=== PATIENT | male | born 1950 | race Caucasian/White ===

== ENCOUNTER 2022-12-28 15:01 | Emergency (ER) | payer MEDICARE ==
[~2022-12-28] VITALS: Ht 172 cm; Wt 92.5 kg
[2022-12-28] MEDS ORDERED: NS IV 1000 ML 1,000 ML IV SCH (17:15)
[2022-12-28 17:18] LABS: BASOPHILS % (AUTO) 0 % (0-10); EOSINOPHILS % (AUTO) 0 % (0-10); HEMATOCRIT 27 % (40-54); HEMOGLOBIN 9.6 g/dL (13.3-17.7); MEAN CORPUSCULAR HGB CONC 36 g/dL (32-36)
--- NOTE | 2022-12-28 17:18 | ED Syncope ---
General Chief Complaint: General Problems/Pain Stated Complaint: FALL | WEAKNESS Nursing Triage Note: PT STATES FEELS OUT OF SORTS AND FELL AT [facility]. WAS DIAPHORETIC. DENIES DIZZINESS OR N/V Source of Information: Patient Exam Limitations: No Limitations History of Present Illness Date Seen by Provider: Dec 28, 2022 Time Seen by Provider: 17:02 Initial Comments 72-year-old male presents to the ED with reports of a syncopal episode at [facility] around 2 PM. States he noticed that when he walked from his car into [facility] his legs felt tight like he just walked up a bunch of steps. Reports he continued to walk around [facility], continued to have the leg tightness. Then went up to check out and handed the cashier clerk money, next thing he knew he was sitting on the floor. He states he then laid over onto his side. Denies injury. The cashier clerk told him that he did lose consciousness. Before the episode he also noticed his vision was blurry, he felt like his vision was going black. Denied any chest pain or dizziness prior to incident. States he feels pretty good now, but complains of slight aches in his body. Denies fevers, chest pain, shortness of air, abdominal pain, nausea, vomiting, diarrhea. Denies any blood in his stool. Reports he has been having occasional epistaxis. He has polycythemia vera, he is supposed to see Dr. Terry next week, he has not yet established with Dr. Terry. Allergies and Home Medications Allergies Coded Allergies: No Known Drug Allergies (Unverified , 12/28/22) Patient Home Medication List Home Medication List Reviewed: Yes Review of Systems Constitutional: see HPI Past Kxtalcv-Tkdbhg-Rqlzyr Hx Patient Social History Tobacco Use?: No Substance use?: No Alcohol Use?: No Pt feels they are or have been: No Immunizations Up To Date Influenza Vaccine Up-to-Date: No; Not Current First/Initial COVID19 Vaccinat: NONE Past Medical History Surgery/Hospitalization HX: PLATLETT PROB, HTN, GERD, INGUINAL HERNIA VASECTOMY Cancer: Yes Leukemia (polycythemia vera) Physical Exam Vital Signs Vital Signs - First Documented 12/28/22 12/28/22 15:24 16:47 Temp 37.4 Pulse 78 Resp 18 B/P (MAP) 146/69 (94) Pulse Ox 97 O2 Delivery Room Air Capillary Refill : Less Than 3 Seconds Height, Weight, BMI Height: '" Weight: lbs. oz. kg; 31.00 BMI Method: General Appearance: No Apparent Distress, WD/WN Neck: Non Tender, Supple Cardiovascular: Regular Rate, Rhythm, No Edema, No Gallop, No JVD, No Murmur Respiratory: Lungs Clear, Normal Breath Sounds, No Accessory Muscle Use, No Respiratory Distress Extremities: Normal Inspection, Normal Range of Motion Neurologic/Psychiatric: Alert, Oriented x3, No Motor/Sensory Deficits, Normal Mood/Affect, manager quality compliance II-XII Norm as Tested Cranial Nerves: Normal Hearing, Normal Speech, PERRL Coordination/Gait: Normal Gait Motor/Sensory: No Motor Deficit Skin: Normal Color, Warm/Dry Progress/Results/Core Measures Results/Orders Lab Results Laboratory Tests Test 12/28/22 17:10 12/28/22 17:38 Range/Units White Blood Count 2.1 L 4.3-11.0 10^3/uL Red Blood Count 2.22 L 4.30-5.52 10^6/uL Hemoglobin 9.6 L 13.3-17.7 g/dL Hematocrit 27 L 40-54 % Mean Corpuscular Volume 122 H 80-99 fL Mean Corpuscular Hemoglobin 43 H 25-34 pg Mean Corpuscular Hemoglobin Concent 36 32-36 g/dL Red Cell Distribution Width 10.0-14.5 % Platelet Count 24 *L 130-400 10^3/uL Mean Platelet Volume 10.6 9.0-12.2 fL Immature Granulocyte % (Auto) 1 % Neutrophils (%) (Auto) 72 42-75 % Lymphocytes (%) (Auto) 22 12-44 % Monocytes (%) (Auto) 5 0-12 % Eosinophils (%) (Auto) 0 0-10 % Basophils (%) (Auto) 0 0-10 % Neutrophils # (Auto) 1.5 L 1.8-7.8 10^3/uL Lymphocytes # (Auto) 0.5 L 1.0-4.0 10^3/uL Monocytes # (Auto) 0.1 0.0-1.0 10^3/uL Eosinophils # (Auto) 0.0 0.0-0.3 10^3/uL Basophils # (Auto) 0.0 0.0-0.1 10^3/uL Immature Granulocyte # (Auto) 0.0 0.0-0.1 10^3/uL Percent Immature Platelet Fraction 3.8 0.0-7.6 % Prothrombin Time 14.5 12.2-14.7 SEC INR Comment 1.1 0.8-1.4 Activated Partial Thromboplast Time 29 24-35 SEC Sodium Level 135 135-145 MMOL/L Potassium Level 3.8 3.6-5.0 MMOL/L Chloride Level 107 98-107 MMOL/L Carbon Dioxide Level 17 L 21-32 MMOL/L Anion Gap 11 5-14 MMOL/L Blood Urea Nitrogen 19 H 7-18 MG/DL Creatinine 1.02 0.60-1.30 MG/DL Estimat Glomerular Filtration Rate 79 BUN/Creatinine Ratio 19 Glucose Level 101 70-105 MG/DL Calcium Level 9.2 8.5-10.1 MG/DL Corrected Calcium 9.2 8.5-10.1 MG/DL Magnesium Level 2.0 1.6-2.4 MG/DL Total Bilirubin 1.2 H 0.1-1.0 MG/DL Aspartate Amino Transf (AST/SGOT) 17 5-34 U/L Alanine Aminotransferase (ALT/SGPT) 16 0-55 U/L Alkaline Phosphatase 54 40-136 U/L Troponin I < 0.028 <0.028 NG/ML Total Protein 7.9 6.4-8.2 GM/DL Albumin 4.0 3.2-4.5 GM/DL Urine Color YELLOW Urine Clarity CLEAR Urine pH 6.0 5-9 Urine Specific [place] 1.010 L 1.016-1.022 Urine Protein TRACE H NEGATIVE Urine Glucose (UA) NEGATIVE NEGATIVE Urine Ketones NEGATIVE NEGATIVE Urine Nitrite NEGATIVE NEGATIVE Urine Bilirubin NEGATIVE NEGATIVE Urine Urobilinogen 0.2 < = 1.0 MG/DL Urine Leukocyte Esterase NEGATIVE NEGATIVE Urine RBC (Auto) 3+ H NEGATIVE Urine RBC 10-25 H /HPF Urine WBC 0-2 /HPF Urine Squamous Epithelial Cells NONE /HPF Urine Crystals NONE /LPF Urine Bacteria FEW H /HPF Urine Casts PRESENT /LPF Urine Hyaline Casts RARE /LPF Urine Mucus SMALL H /LPF Urine Yeast FEW H /HPF Urine Culture Indicated YES Micro Results Microbiology 12/28/22 Urine Culture - Final, Complete NO GROWTH My Orders Orders - SANDRA,SLIM R [employer] FEEDER Cbc With Automated Diff (12/28/22 16:50) Magnesium (12/28/22 16:50) Chest 1 View, Ap/Pa Only (12/28/22 16:50) Ekg Tracing (12/28/22 16:50) Comprehensive Metabolic Panel (12/28/22 16:50) Protime With Inr (12/28/22 16:50) Partial Thromboplastin Time (12/28/22 16:50) Ed Iv/Invasive Line Start (12/28/22 16:50) Troponin I [place] (12/28/22 16:50) Ua Culture If Indicated (12/28/22 16:50) Ct Head Wo (12/28/22 16:50) Ns Iv 1000 Ml (Sodium Chloride 0.9%) (12/28/22 17:15) Urine Culture (12/28/22 17:38) Vital Signs/I&O 12/28/22 12/28/22 12/28/22 15:24 16:47 18:55 Temp 37.4 Pulse 78 91 75 Resp 18 22 22 B/P (MAP) 146/69 (94) 154/77 (102) 179/87 Pulse Ox 97 98 98 O2 Delivery Room Air Room Air Blood Pressure Mean: 94 Progress Progress Note : Progress Note Patient seen and evaluated, resting comfortably, no acute distress. Based on exam and symptoms, work-up initiated including CBC, CMP, troponin, magnesium, coags, chest x-ray, EKG, UA, CT head. IV fluids ordered. Labs reviewed. CBC shows pancytopenia. WBC is 2.1, RBC 2.22, and platelets critically low at 24. Hemoglobin low 9.6, hematocrit low 27, MCV high 122, MCHC high 43. CMP shows decreased CO2 17 and increased BUN 19. Troponin negative. Coags normal. UA shows 3+ RBCs, 0-2 WBCs, few bacteria, negative nitrites, negative leukocytes. X-ray reviewed. Negative for acute cardiopulmonary process. CT shows senescent brain with involutional changes and mild atrophy with background chronic areas of microvascular ischemic change but no acute findings identified by nonenhanced CT criteria. Moderate to severe acute on chronic right maxillary sinus disease. I called and spoke with Dr. Terry, oncologist, about patient's CBC results. He recommends patient stop taking his hydroxyurea and to follow up with him as scheduled next Wednesday where he will order repeat lab tests. He states to advise patient to return to the ED if he experiences uncontrolled bleeding or fever. Results and recommendations discussed with patient and family. Patient instructed to be very careful to not fall or injure himself because his platelet count is so low. Patient verbalized understanding of all discharge instructions and return precautions. Initial ECG Impression Date: Dec 28, 2022 Initial ECG Impression Time: 17:26 Initial ECG Rate: 79 Initial ECG Rhythm: Normal Sinus Initial ECG Intervals: Normal Initial ECG Impression: Nonspecific Changes Initial ECG Comparisson: No Previous ECG Available Comment Nondiagnostic ST changes lead aVR, no evidence of STEMI. Diagnostic Imaging Diagonstic Imaging: Xray Plain Films/CT/US/NM/MRI: chest Comments [facility] [place], [place] NAME: RADHAIRVING Felton [facility] REC#: [id number] PT STATUS: REG ER : 1950 PHYSICIAN: SLIM FLORES APRN ADMIT DATE: 12/28/22/ER Signed Date of Exam:12/28/22 CHEST 1 VIEW, AP/PA ONLY Indication: Chest pain Single AP view of chest is obtained. COMPARISON: No previous study is available for comparison at this time. FINDINGS: Heart size and pulmonary vasculature are within normal limits, and the lungs are clear, bilaterally. IMPRESSION: Unremarkable chest. Dictated by: Dictated on workstation # [id number] Dict: 12/28/22 172 Trans: 12/28/22 172 [id number] Interpreted by: GABE JONES MD Electronically signed by: GABE JONES MD 12/28/22 172 Diagonstic Imaging: CT Plain Films/CT/US/NM/MRI: head Comments [facility] [place], [place] NAME: RADHAIRVING Felton [facility] REC#: [id number] PT STATUS: REG ER : 1950 PHYSICIAN: SLIM FLORES APRN ADMIT DATE: 12/28/22/ER Signed Date of Exam:12/28/22 CT HEAD WO PROCEDURE: CT head without contrast. TECHNIQUE: Multiple contiguous axial images were obtained through the brain without the use of intravenous contrast. Auto Exposure Controls were utilized during the CT exam to meet ALARA standards for radiation dose reduction. INDICATION: 72-year-old male with syncope. COMPARISONS: None FINDINGS: Midline structures are not displaced. Lateral, 3rd and 4th ventricles are normal in size, shape and anatomic position. There are senescent changes to the brain with involutional changes and generalized atrophy. There are background chronic areas of microvascular ischemic change. There is extensive calcific atherosclerosis in the carotid siphons and visualized vertebral arteries. There are no abnormal extraaxial fluid collections or hemorrhage. Basilar cisterns appear normal. Sinuses show acute on chronic severe right maxillary sinus disease. Orbits and mastoid air cells are unremarkable. Bone windows show no calvarial changes. IMPRESSION: 1. Senescent brain with involutional changes and mild atrophy with background chronic areas of microvascular ischemic change but no acute findings identified by nonenhanced CT criteria. 2. Moderate to severe acute on chronic right maxillary sinus disease. 3. Additional nonemergent findings, as described. Dictated by: Dictated on workstation # [id number] Dict: 12/28/22 1721 Trans: 12/28/22 1732 [facility] [id number] Interpreted by: JOHANNA EPSTEIN MD Electronically signed by: JOHANNA EPSTEIN MD 12/28/22 1732 Departure Communication (Admissions) Time/Spoke to Consulting Phy: 17:46 Dr. Terry, oncologist, called regarding patient's CBC. See progress note. Impression Primary Impression: Syncope Additional Impression: Pancytopenia Disposition: 01 HOME, SELF-CARE Condition: Stable Departure-Patient Inst. Decision time for Depature: 18:45 Referrals: MATTI TERRY (PCP/Family) Primary Care Physician Patient Instructions: Syncope (Fainting) Add. Discharge Instructions: Stop taking your hydroxyurea and aspirin until you follow-up with Dr. Terry. Dr. Terry will recheck your blood levels, and restart you on your medications if needed. Be careful not to injure yourself or fall. Monitor for bleeding. Return for uncontrolled bleeding. Return for loss of consciousness, chest pain, palpitations, shortness of air, severe headache, changes in vision, focal numbness or weakness, severe abdominal pain, black, tarry stool, any other new, concerning, or worsening symptoms. All discharge instructions reviewed with patient and/or family. Voiced understanding. Copy Copies To 1: MATTI TERRY Copies To 2: ELIDIA FRANCES MD, BRITTANY R APRN Dec 28, 2022 17:18
[2022-12-28 17:20] LABS: LYMPHOCYTES # (AUTO) 0.5 10^3/uL (1.0-4.0); LYMPHOCYTES % (AUTO) 22 % (12-44); MEAN CORPUSCULAR HEMOGLOBIN 43 pg (25-34); MEAN CORPUSCULAR VOLUME 122 fL (80-99); MEAN PLATELET VOLUME 10.6 fL (9.0-12.2); MONOCYTES # (AUTO) 0.1 10^3/uL (0.0-1.0); MONOCYTES % (AUTO) 5 % (0-12); NEUTROPHILS # (AUTO) 1.5 10^3/uL (1.8-7.8); NEUTROPHILS % (AUTO) 72 % (42-75); WHITE BLOOD COUNT 2.1 10^3/uL (4.3-11.0)
--- NOTE | 2022-12-28 17:22 | Diagnostic Imaging Report ---
Indication: Chest pain Single AP view of chest is obtained. COMPARISON: No previous study is available for comparison at this time. FINDINGS: Heart size and pulmonary vasculature are within normal limits, and the lungs are clear, bilaterally. IMPRESSION: Unremarkable chest. Dictated by: Dictated on workstation # [id number]
[2022-12-28 17:23] LABS: PLATELET COUNT 24 10^3/uL (130-400)
--- NOTE | 2022-12-28 17:31 | Diagnostic Imaging Report ---
PROCEDURE: CT head without contrast. TECHNIQUE: Multiple contiguous axial images were obtained through the brain without the use of intravenous contrast. Auto Exposure Controls were utilized during the CT exam to meet ALARA standards for radiation dose reduction. INDICATION: 72-year-old male with syncope. COMPARISONS: None FINDINGS: Midline structures are not displaced. Lateral, 3rd and 4th ventricles are normal in size, shape and anatomic position. There are senescent changes to the brain with involutional changes and generalized atrophy. There are background chronic areas of microvascular ischemic change. There is extensive calcific atherosclerosis in the carotid siphons and visualized vertebral arteries. There are no abnormal extraaxial fluid collections or hemorrhage. Basilar cisterns appear normal. Sinuses show acute on chronic severe right maxillary sinus disease. Orbits and mastoid air cells are unremarkable. Bone windows show no calvarial changes. IMPRESSION: 1. Senescent brain with involutional changes and mild atrophy with background chronic areas of microvascular ischemic change but no acute findings identified by nonenhanced CT criteria. 2. Moderate to severe acute on chronic right maxillary sinus disease. 3. Additional nonemergent findings, as described. Dictated by: Dictated on workstation # [id number]
[2022-12-28 17:35] LABS: POTASSIUM 3.8 MMOL/L (3.6-5.0)
[2022-12-28 17:36] LABS: CALCIUM 9.2 MG/DL (8.5-10.1)
[2022-12-28 17:37] LABS: TOTAL PROTEIN 7.9 GM/DL (6.4-8.2)
[2022-12-28 17:39] LABS: BILIRUBIN,TOTAL 1.2 MG/DL (0.1-1.0)
[2022-12-28 17:41] LABS: CREATININE SERUM 1.02 MG/DL (0.60-1.30)
[2022-12-28 17:46] LABS: INR 1.1 (0.8-1.4); PROTHROMBIN TIME PATIENT 14.5 SEC (12.2-14.7)
[2022-12-28 17:49] LABS: BILIRUBIN,URINE NEGATIVE (NEGATIVE); CLARITY,URINE CLEAR; COLOR,URINE YELLOW; GLUCOSE, URINE (UA) NEGATIVE (NEGATIVE); KETONES,URINE NEGATIVE (NEGATIVE); LEUKOCYTE ESTERASE ,URINE NEGATIVE (NEGATIVE); NITRITE,URINE NEGATIVE (NEGATIVE); PROTEIN,URINE TRACE (NEGATIVE)
[2022-12-28 18:20] LABS: BACTERIA,URINE FEW /HPF; HYALINE CASTS, URINE RARE /LPF; WBC,URINE 0-2 /HPF; YEAST,URINE FEW /HPF
[2022-12-28 18:55] VITALS: BP 179/87
== END 2022-12-28 18:56 | disposition home or self-care (01) ==
LOC: ER 15:04
DX: R55 Syncope and collapse (principal); D61.818 Other pancytopenia; I10 Essential (primary) hypertension
CPT/HCPCS: 36415; 70450; 71045; 80053; 81000; 83735; 84484; 85025; 85610; 85730; 87088; 93005